=== PATIENT | female | born 1970 | race Caucasian/White ===

== ENCOUNTER → 2019-05-09 08:52 | Outpatient (REF) | payer OTHER, SELFPAY | LOC: ANHLAB 08:52 | PROVIDERS: PCP Internal Medicine; Visit Provider Nurse Practitioner Family | DX: L72.0 Epidermal cyst (principal) | CPT/HCPCS: 88304 ==

== ENCOUNTER 2024-08-30 08:37 | Outpatient (CLI) | payer OTHER, SELFPAY ==
--- NOTE | 2024-08-30 | ECHO_ITS ---
Patient Info Name: Kofi Louise Age: 54 years : 1970 Gender: Female Ht: 69 in Wt: 240 lbs BSA: 2.34 m2 HR: 66 bpm BP: 154 / 94 mmHg Technical Quality: Good, Fair Exam Date: 08/30/2024 8:59 AM Patient Status: O Admit Date: 08/30/2024 Exam Type: CA echo doppler color flow Complete two-dimensional, color flow and Doppler transthoracic echocardiogram is performed. Display Card Writer: Minerva Crocker Attending Provider: Jose L Meadows Summary 1. Complete two-dimensional, color flow and Doppler transthoracic echocardiogram is performed. 2. Left ventricular chamber dimension is normal. 3. Left ventricular systolic function is normal, estimated at 65-70. 4. The left ventricular diastolic function is normal. 5. E/e' 8 is minimally elevated. 6. There is trace mitral valve regurgitation. 7. There is mild tricuspid valve regurgitation. 8. No pulmonary hypertension, estimated pulmonary arterial systolic pressure is 26 mmHg. Left Ventricle E/e' 8 is minimally elevated. Left ventricular chamber dimension is normal. Left ventricular systolic function is normal, estimated at 65-70. The left ventricular diastolic function is normal. Right Ventricle Right ventricular chamber dimension is not well visualized. Right ventricular systolic function is normal based on a normal TAPSE 2.1 cm. Left Atria Left atrial chamber dimension is normal. Right Atria Right atrial chamber dimension is normal. Aortic Valve The aortic valve is trileaflet. There is no aortic valve stenosis. There is no aortic valve regurgitation. Pulmonic Valve There is no pulmonic regurgitation. Mitral Valve There is no mitral valve stenosis. There is trace mitral valve regurgitation. Tricuspid Valve There is mild tricuspid valve regurgitation. No pulmonary hypertension, estimated pulmonary arterial systolic pressure is 26 mmHg. Pericardium/Pleural There is no pericardial effusion. Inferior Vena Cava Normal inferior vena cava with >50% collapse upon inspiration consistent with normal right atrial pressure, 5 mmHg. Aorta The aortic root size at the sinus of Valsalva is normal. Left Ventricular Outflow Tract Name Value Normal LVOT 2D LVOT Diameter 1.8 cm LVOT Doppler LVOT Peak Velocity 90 cm/s LVOT Peak Gradient 3 mmHg LVOT Mean Gradient 2 mmHg LVOT VTI 22 cm LVOT VTI/AV VTI Ratio 0.7 LVOT Stroke Volume 58 ml LVOT CO 10.8 l/min LVOT CI 4.6 l/min/m2 Pulmonic Valve Name Value Normal PV Doppler PV Peak Velocity 90 cm/s PV Peak Gradient 3 mmHg Mitral Valve Name Value Normal MV Diastolic Function MV E Peak Velocity 93 cm/s MV A Peak Velocity 84 cm/s MV E/A 1.1 MV Decel Time (PW) 197 ms MV Annular TDI MV E/e' (Septal) 8.7 MV E/e' (Lateral) 8.9 MV E/e' (Average) 8.8 Tricuspid Valve Name Value Normal TV Regurgitation Doppler TR Peak Velocity 232 cm/s TR Peak Gradient 21 mmHg Estimated PAP/RSVP RA Pressure 5 mmHg <=5 PA Systolic Pressure 26 mmHg <36 RV Systolic Pressure 26 mmHg <36 TV Annular TDI TV Lateral Isha s' Velocity 12.2 cm/s >=9.5 Aorta Name Value Normal Ascending Aorta Ao Root Diameter (MM) 2.8 cm Ao Root Diam Index (MM) 1.2 cm/m2 Aortic Valve Name Value Normal AV Doppler AV Peak Velocity 121 cm/s AV Peak Gradient 6 mmHg AV Mean Gradient 3 mmHg AV VTI 31 cm AV Area (Cont Eq VTI) 1.9 cm2 >=3.0 AV Area (Cont Eq Remi) 2.0 cm2 AV DI (Remi) 0.75 AV Regurgitation 2D LVOT Area 2.6 cm2 Ventricles Name Value Normal LV Dimensions 2D/MM IVS Diastolic Thickness (2D) 0.9 cm 0.6-1.0 LVID Diastole (2D) 4.3 cm 3.8-5.2 LVIW Diastolic Thickness (2D) 0.9 cm 0.6-0.9 LVID Systole (2D) 2.5 cm 2.2-3.5 LVOT Diameter 1.8 cm LV Mass (2D Cubed) 126.17 g 67.00-162.00 LV Mass Index (2D Cubed) 54 g/m2 43-95 Relative Wall Thickness (2D) 0.40 <=0.42 LV Fractional Shortening/Ejection Fraction 2D/MM LV Fractional Shortening (2D) 42 % 27-45 LV EF (2D Teichholz) 74 % LV Diastolic Volume (4C MOD) 108 ml LV EF (4C MOD) 70 % LV Diastolic Volume (2C MOD) 108 ml LV EF (2C MOD) 68 % LV Diastolic Volume (BP MOD) 110 ml 46-106 LV Diastolic Volume Index (BP MOD) 47 ml/m2 29-61 LV Systolic Volume (BP MOD) 34 ml 14-42 LV Systolic Volume Index (BP MOD) 14 ml/m2 8-24 LV EF (BP MOD) 69 % 54-74 LV Diastolic Length (4C) 8.3 cm LV Systolic Length (4C) 6.5 cm LV Stroke Volume (4C MOD) 75 ml RV Dimensions 2D/MM RVID Diastole (2D) 3.7 cm 2.1-3.5 Atria Name Value Normal LA Dimensions LA Dimension (MM) 3.4 cm 2.7-3.8 LA Volume (4C A-L) 53 ml LA Volume (BP A-L) 53 ml RA Dimensions RA Systolic Major [place] Length (4C) 4.9 cm 2.2-2.8 RA Area (4C) 15.2 cm2 <=18.0 Report Signatures
--- OUTSIDE RECORDS SUMMARY | 2024-08-30 08:40 | XMS_ITS | CONTINUITY OF CARE DOCUMENT ---
Author Name felicitylane hilda Address Unknown Organization [facility] Address [address] [place] [address] Phone [phone] Care Team Providers Care Discharging Machine Operator Name Role Phone Jaya ALEXANDER, Benjamin Unavailable [phone] SADIE BUSTOS MD Unavailable [phone] SADIE BUSTOS MD Unavailable PROBLEMS Condition Status Date Provider Notes Palpitations active Ranjana Mohit Venous insufficiency active Taina major TV TECHNICIAN ENCOUNTERS Date Type Provider Location Encounter Diag nosis - In-person encounter Office Visit Benjamin Lake MD [facility] Office - In-person encounter Office Visit Benjamin Lake MD [facility] Office - In-person encounter Office Visit Benjamin Lake MD [facility] Venous insufficiency VITAL SIGNS Date Observation Value Provider Body Mass Index (Ratio) 36.32 kg/m2 Ronaldo Lake MD blood pressure, cuff size large Ke rri Gracie blood pressure, diastolic 96 mm[Hg] Ke rri Gracie blood pressure, systolic 132 mm[Hg] Tom Bowman oxygen saturation, oximetry 98 % Katerine Bowman respiratory rate E&M 14 /min Katerine galdamez pulse rate 86 /min Katerine carrillo weight E&M 246 [lb_av] Katerine carrillo height E&M 69 [in_i] Katerine kent Body Mass Index (Ratio) 36.47 kg/m2 Sund eemaren Lake MD blood pressure, diastolic 78 mm[Hg] An tiffanie Crocker blood pressure, systolic 142 mm[Hg] Any donell Crocker oxygen saturation, oximetry 99 % Caryn Crocker pulse rate 74 /min Caryn Crocker weight E&M 247 [lb_av] Caryn Crocker blood pressure, cuff size large An tiffanie Crocker height E&M 69 [in_i] Caryn Crocker Body Mass Index (Ratio) 35.88 kg/m2 Sund leonel Lake MD blood pressure, diastolic -1 mm[Hg] Heidi nkLog blood pressure, systolic 130 mm[Hg] Yi kLog blood pressure, diastolic 97 mm[Hg] Ke rri Gracie blood pressure, systolic 130 mm[Hg] Tom ri Gracie blood pressure, cuff size large Ke rri Gracie oxygen saturation, oximetry 100 % Katerine Bowman respiratory rate E&M 16 /min Katerine galdamez pulse rate 80 /min Katerine kent weight E&M 243 [lb_av] Katerine carrillo height E&M 69 [in_i] Katerine carrillo HISTORY OF MEDICATION USE No Known Medication SOCIAL HISTORY Date Observation Value Provider smoking status Never smoker Katerine washburn smoking status Never smoker Caryn Crocker smoking status Never smoker Katerine washburn INSURANCE PROVIDERS Payer name Policy type / Coverage type Cristiana red alliance party ID [facility] [id number] Other [id number] ADVANCE DIRECTIVES Name Date DISCUSSED - NO DECISION MADE TREATMENT PLAN Date Name Performer [id number],C, H ad then in the past - which she states is from anxiety h as not had them recently. Taina Roche TV TECHNICIAN [id number],C,H ad venous dopplers with significan Venous insufficiency of the GSV bilaterally, and the significant venous insufficiency of the R anterior accessory SV it measure mm with second of reflux. wearing her compression stockings thigh high will plan on doing the accessory vein on the right leg first since it is the largest and will determine if we can do the GSV at the same time. Taina Roche TV TECHNICIAN [id number],C,H ad then in the past - which she states is from anxiety Taina Donell Fayee TV TECHNICIAN [id number],C,S he has varicose veins noted in the right LE, with swelling and pain. Worse in the right than the left W e will obtain standing venous dopplers r ecommend conservative treatment with thigh high compression 20-30 mmHg to be worn daily and off at night e levate her legs when lying down /sitting. Taina Roche TV TECHNICIAN Cardiology: H ad then in the past - which she states is from anxiety h as not had them recently. Taina Roche TV TECHNICIAN Cardiology:Had venou s dopplers with significan Venous insufficiency of the GSV bilaterally, and the significant venous insufficiency of the R anterior accessory SV it measure mm with second of reflux. wearing her compression stockings thigh high will plan on doing the accessory vein on the right leg first since it is the largest and will determine if we can do the GSV at the same time. Taina Roche TV TECHNICIAN Cardiology:Had then in the past - which she states is from anxiety Taina Donell Fayee TV TECHNICIAN Cardiology:She has v aricose veins noted in the right LE, with swelling and pain. Worse in the right than the left W e will obtain standing venous dopplers r ecommend conservative treatment with thigh high compression 20-30 mmHg to be worn daily and off at night e levate her legs when lying down /sitting. Taina Roche TV TECHNICIAN Date Name Venous Doppler Unila teral RLE VenaSeal Venous Doppler Bilat eral LE - Reflux HISTORY OF PROCEDURES Procedure Date Procedure Name Provider Procedure Notes S tatus EKG Jaya ALEXANDER completed STEVE Villagomez Hooklisa Castro MD c ompleted
--- OUTSIDE RECORDS SUMMARY | 2024-08-30 08:40 | XMS_ITS | Clinical Summary ---
Author Organization [facility] Address [address] [place] [address] Care Team Providers Care Director Project Management Name Role Phone Unavailable Primary Care Provider Unavailabl e Source Comments [facility],non-owned Affiliates and Associated Physician Practices is amultiple site organization consisting of ambulatory clinics and hospital sitesin [place], [place], [place] and [place]. This disclosure is being madepursuant to the Care Everywhere program and may not contain all information available regarding this patient. Last updated 17.[facility] [place] Immunizations Immunization Administration Dates Next Due INFLUENZA VACCINE, QUADR. (F LUZONE; FLULAVAL; FLUARIX; AFLURIA QUADRIVALENT; 6MO+), 0.5 ML (IIV4) 01/31/2020 Social History Tobacco Use Types Packs/Day Years Used Date Smoking Tobacco: Never Assessed Comments Unknown Sex and Gender Information Value Date Recorded Sex Assigned at Not on file Legal Sex Female 3:39 PM [employer] Gender Identity Not on file Sexual Orientation Not on file Plan of Treatment Health Maintenance Due Date Last Done Comments COLOGUARD (AGES 45-75) - COL ON CA SCREENING 1970 COLON MONITORING 1970 COLONOSCOPY - COLON CA SCREENING 1972 CT COLONOGRAPHY - COLON CA SCREENING 1970 Colorectal Cancer Screening 1970 FIT - COLON CA SCREENING 1970 FLEX SIG - COLON CA SCREENING 1970 LIPID TESTING 1970 HIV SCREENING 06/28/1987 HEPATITIS C SCREENING 06/23/1990 DTAP/TDAP/TD VACCINES (1 - Tdap) 06/28/1991 HEPATITIS B VACCINE (1 of 3 - 19+ 3-dose series) 06/28/1991 MAMMOGRAM 12/09/2021 12/10/2019 PNEUMOCOCCAL VACCINE 50+ (1 of 1 - PCV) 2022 ZOSTER VACCINE (1 of 2) 2022 COVID-19 VACCINE (1 - 2023-2 5 season) 2023 DEPRESSION SCREENING 04/03/2024 INFLUENZA VACCINE (Season Ended) 2024 01/31/2020, 02/14/2019 HIB VACCINE Aged Out No longer eligi ble based on patient's age to complete this topic HPV VACCINE Aged Out No longer eligi ble based on patient's age to complete this topic MENINGOCOCCAL (Group B) VACCINE SHARED DECISION-MAKING Aged Out No longer eligible based on patient's age to complete this topic MENINGOCOCCAL GROUPS A/C/Y/W VACCINE Aged Out No longer eligible b ased on patient's age to complete this topic Insurance
--- OUTSIDE RECORDS SUMMARY | 2024-08-30 08:40 | XMS_ITS | Data Portability ---
[facility] [address] [place] [address] Care Team Providers Care Caddy Packer Name Role Phone SADIE MEADOWS Primary Care Provider [phone] Assessment Encounter Date Assessment Date Assessment LastModified by Organization Details LastModified Time 07/20/2023 07/20/2023 We will obtain blood work pros and cons of GLP-1 agents discussed and we will start Zepp bound we will see her 6 weeks after she starts the medicine. States she had a colonoscopy about a couple years ago sees INFRASTRUCTURE ANALYST regularly we will obtain old records see me back as [email or web address] Not available 07/20/2023 21:36:38 01/25/2024 01/25/2024 blood work. Regular walking. Healthy lifestyle care instructions. We will obtain records for Pap smear mammogram and colon cancer screening. Follow up 6 months. Not available 01/28/2024 21:07:49 07/25/2024 07/25/2024 Back caffeine echo healthy lifestyle care instructions blood reviewed Pneumovax 20 and which she will scheduled herself we have given her the coronary calcium score [email or web address] Not available 07/27/2024 14:02:23 Plan of Treatment Reminders Order Date Submit Date Provider Last Modified By Organization Details Last Modified Time Details Appointments None recorded. Lab lipid panel, serum 2023 SANJ[facility]NA [facility], [address], [place], [address], 08:24:21 CMP, serum or plasma 2023 SANJUANA [facility], [address], [place], [address], 4 08:24:22 CBC w/ auto diff 2023 024 [facility], [address], [place], [address], 4 08:24:24 lipid panel, serum 2023 024 [facility], [address], [place], [address], 4 08:25:16 CMP, serum or plasma 2023 024 [facility], [address], [place], [address], 4 08:25:17 TSH, ultra-sensi tive, serum 2023 024 SANJAUNA Rogers, [address], [place], [address], 4 08:25:18 T3, free, serum or plasma 2023 024 [facility], [address], [place], [address], 4 08:25:18 unlisted lab - T4, free 2023 024 SANJUANA Rogers, [address], [place], [address], 4 08:25:17 CBC w/ auto diff 2023 024 [facility]ED Sue, [address], [place], [address], 4 08:25:18 Referral None recorded. Procedures None recorded. Surgeries None recorded. Imaging electrocard iogram 2024 025 [email or web address] In-Office Order, Internal Use Only DO Not Attach Compendium DO Not Attach Compendium, Do Not Delete/merge, [id number] 5 21:34:17 US, echocardiog marcellus 2024 025 [facility] [address], [place], [address], 5 04:13:56 Medication Orders Zepbound 2.5 mg/0.5 mL subcutaneou s pen injector 2023 024 [id number], [address], [place], [place], [id number], 4 16:26:25 Zepbound 5 mg/0.5 mL subcutaneou s pen injector 2023 024 [facility] #[id number], [address], [place], [place], [id number], 4 16:26:28 Patient TargetsNo targets recorded. Patient Instructions Encounter Date Encounter Id Patient Instructions Last Modified By Organization Details Last Modified Time 01/25/2024 [id number] A healthy lifestyle: care instructions [email or web address] Not available 01/25/2024 17:30:37 07/25/2024 [id number] A healthy lifestyle: care instructions [email or web address] Not available 07/25/2024 21:34:17 Reason for Referral None Reported. Results Created Date Observation Date Name Description Value Unit Range Abnormal Flag Note LastModifiedBy Organization Detail LastModifiedTime 08/18/1908/19/2023 LIPID PANEL cholesterol, total 212 mg/dL 100-19 9 above high normal Not Available [facility] ([facility]) [address] [facility], [place], [address], 08/19/2023 08:25:16 08/18/19 24 08/19/2023 LIPID PANEL triglyceride s 61 mg/dL 0-149 Not Available [facility] ([facility]) [address] [place], [address], 08/19/2023 08:25:16 08/18/19 24 08/19/2023 LIPID PANEL HDL cholesterol 59 mg/dL >39 Not Available [facility] ([facility]) [address] [place], [address], 08/19/2023 08:25:16 08/18/19 24 08/19/2023 LIPID PANEL VLDL cholesterol dhaval 11 mg/dL 5-40 Not Available [facility] ([facility]) [address] [place], [address], 08/19/2023 08:25:16 08/18/19 24 08/19/2023 LIPID PANEL LDL chol calc ([facility]) 142 mg/dL 0-99 above high normal Not Available [facility] ([facility]) [address] [place], [address], 08/19/2023 08:25:16 08/18/19 24 08/19/2023 T4, FREE T4,free(dire ct) 1.24 NG/dL 0.82-1 .77 Not Available [facility] ([facility]) [address] [place], [address], 08/19/2023 08:25:16 08/18/19 24 08/19/2023 COMP. METAB OLIC PANEL (14) glucose 100 mg/dL 70-99 above high normal Not Available [facility] ([facility]) [address] [place], [address], 08/19/2023 08:25:17 08/18/19 24 08/19/2023 COMP. METAB OLIC PANEL (14) BUN 15 mg/dL 6-24 Not Available [facility] ([facility]) [address] [place], [address], 08/19/2023 08:25:17 08/18/19 24 08/19/2023 COMP. METAB OLIC PANEL (14) creatinine 1.04 mg/dL 0.57-1 .00 above high normal Not Available [facility] ([facility]) [address] [facility] [place], [address], 08/19/2023 08:25:17 08/18/19 24 08/19/2023 COMP. METAB OLIC PANEL (14) eGFR 65 mL/mi n/1.7 3 >59 Not Available [facility] ([facility]) [address] [facility] [place], [address], 08/19/2023 08:25:17 08/18/19 24 08/19/2023 COMP. METAB OLIC PANEL (14) BUN/creatini ne ratio 14 9-23 Not Available [facility] ([facility]) [address] [place], [address], 08/19/2023 08:25:17 08/18/19 24 08/19/2023 COMP. METAB OLIC PANEL (14) sodium 138 mmol/ L 134-14 4 Not Available [facility] ([facility]) [address] [place], [address], 08/19/2023 08:25:17 08/18/19 24 08/19/2023 COMP. METAB OLIC PANEL (14) potassium 4.5 mmol/ L 3.5-5. 2 Not Available [facility] ([facility]) [address] [place], [address], 08/19/2023 08:25:17 08/18/19 24 08/19/2023 COMP. METAB OLIC PANEL (14) chloride 102 mmol/ L 96-106 Not Available [facility] ([facility]) [address] [place], [address], 08/19/2023 08:25:17 08/18/19 24 08/19/2023 COMP. METAB OLIC PANEL (14) carbon dioxide, total 24 mmol/ L 20-29 Not Available [facility] ([facility]) [address] [place], [address], 08/19/2023 08:25:17 08/18/19 24 08/19/2023 COMP. METAB OLIC PANEL (14) calcium 9.5 mg/dL 8.7-10 .2 Not Available [facility] ([facility]) [address] [place], [address], 08/19/2023 08:25:17 08/18/19 24 08/19/2023 COMP. METAB OLIC PANEL (14) protein, total 6.8 g/dL 6.0-8. 5 Not Available [facility] ([facility] [address] [place], [address], 08/19/2023 08:25:17 08/18/19 24 08/19/2023 COMP. METAB OLIC PANEL (14) albumin 4.6 g/dL 3.8-4. 9 Not Available [facility] ([facility]) [address] [facility] [place], [address], 08/19/2023 08:25:17 08/18/19 24 08/19/2023 COMP. METAB OLIC PANEL (14) globulin, total 2.2 g/dL 1.5-4. 5 Not Available [facility] ([facility]) [address] [facility] [place], [address], 08/19/2023 08:25:17 08/18/19 24 08/19/2023 COMP. METAB OLIC PANEL (14) A/G ratio 2.1 1.2-2. 2 Not Available [facility] ([facility]) [address] [facility] [place], [address], 08/19/2023 08:25:17 08/18/19 24 08/19/2023 COMP. METAB OLIC PANEL (14) bilirubin, total 0.6 mg/dL 0.0-1. 2 Not Available [facility] ([facility]) [address] [facility] [place], [address], 08/19/2023 08:25:17 08/18/19 24 08/19/2023 COMP. METAB OLIC PANEL (14) alkaline phosphatase 42 IU/L 44-121 below low normal Not Available [facility] ([facility]) [address] [facility] [place], [address], 08/19/2023 08:25:17 08/18/19 24 08/19/2023 COMP. METAB OLIC PANEL (14) AST (SGOT) 23 IU/L 0-40 Not Available [facility] ([facility]) [address] [facility] [place], [address], 08/19/2023 08:25:17 08/18/19 24 08/19/2023 COMP. METAB OLIC PANEL (14) ALT (SGPT) 24 IU/L 0-32 Not Available [facility] ([facility]) [address] [facility], [place], [address], 08/19/2023 08:25:17 08/18/19 24 08/19/2023 TSH TSH 1.430 uIU/m L 0.450- 4.500 Not Available [facility] ([facility]) [address] [place], [address], 08/19/2023 08:25:17 08/18/19 24 08/19/2023 CBC WITH DIFFE RENTI AL/PL ATELE T WBC 6.2 x10e3 /uL 3.4-10 .8 Not Available [facility] ([facility]) [address] [facility] [place], [address], 08/19/2023 08:25:18 08/18/19 24 08/19/2023 CBC WITH DIFFE RENTI AL/PL ATELE T RBC 4.96 x10e6 /uL 3.77-5 .28 Not Available [facility] ([facility]) [address] [place], [address], 08/19/2023 08:25:18 08/18/19 24 08/19/2023 CBC WITH DIFFE RENTI AL/PL ATELE T hemoglobin 14.4 g/dL 11.1-1 5.9 Not Available [facility] ([facility]) [address] [facility], [place], [address], 08/19/2023 08:25:18 08/18/19 24 08/19/2023 CBC WITH DIFFE RENTI AL/PL ATELE T hematocrit 44.8 % 34.0-4 6.6 Not Available [facility] ([facility]) [address] [facility], [place], [address], 08/19/2023 08:25:18 08/18/19 24 08/19/2023 CBC WITH DIFFE RENTI AL/PL ATELE T MCV 90 fL 79-97 Not Available [facility] ([facility]) [address] [facility], [place], [address], 08/19/2023 08:25:18 08/18/19 24 08/19/2023 CBC WITH DIFFE RENTI AL/PL ATELE T MCH 29.0 pg 26.6-3 3.0 Not Available [facility] ([facility]) [address] [place], [address], 08/19/2023 08:25:18 08/18/19 24 08/19/2023 CBC WITH DIFFE RENTI AL/PL ATELE T MCHC 32.1 g/dL 31.5-3 5.7 Not Available [facility] ([facility]) [address] [place], [address], 08/19/2023 08:25:18 08/18/19 24 08/19/2023 CBC WITH DIFFE RENTI AL/PL ATELE T RDW 12.5 % 11.7-1 5.4 Not Available [facility] ([facility]) [address] [place], [address], 08/19/2023 08:25:18 08/18/19 24 08/19/2023 CBC WITH DIFFE RENTI AL/PL ATELE T platelets 343 x10e3 /uL 150-45 0 Not Available [facility] ([facility]) [address] [facility], [place], [address], 08/19/2023 08:25:18 08/18/19 24 08/19/2023 CBC WITH DIFFE RENTI AL/PL ATELE T neutrophils 67 % notest ab. Not Available [facility] ([facility]) [address] [facility], [place], [address], 08/19/2023 08:25:18 08/18/19 24 08/19/2023 CBC WITH DIFFE RENTI AL/PL ATELE T lymphs 25 % notest ab. Not Available [facility] ([facility]) [address] [facility], [place], [address], 08/19/2023 08:25:18 08/18/19 24 08/19/2023 CBC WITH DIFFE RENTI AL/PL ATELE T monocytes 5 % notest ab. Not Available [facility] ([facility]) [address] [facility], [place], [address], 08/19/2023 08:25:18 08/18/19 24 08/19/2023 CBC WITH DIFFE RENTI AL/PL ATELE T eos 2 % notest ab. Not Available [facility] ([facility]) [address] [facility], [place], [address], 08/19/2023 08:25:18 08/18/19 24 08/19/2023 CBC WITH DIFFE RENTI AL/PL ATELE T basos 1 % notest ab. Not Available [facility] ([facility]) [address] [facility], [place], [address], 08/19/2023 08:25:18 08/18/19 24 08/19/2023 CBC WITH DIFFE RENTI AL/PL ATELE T neutrophils (absolute) 4.2 x10e3 /uL 1.4-7. 0 Not Available [facility] ([facility]) [address] [facility], [place], [address], 08/19/2023 08:25:18 08/18/19 24 08/19/2023 CBC WITH DIFFE RENTI AL/PL ATELE T lymphs (absolute) 1.5 x10e3 /uL 0.7-3. 1 Not Available [facility] ([facility]) [address] [facility], [place], [address], 08/19/2023 08:25:18 08/18/19 24 08/19/2023 CBC WITH DIFFE RENTI AL/PL ATELE T monocytes(ab solute) 0.3 x10e3 /uL 0.1-0. 9 Not Available [facility] ([facility]) [address] [facility], [place], [address], 08/19/2023 08:25:18 08/18/19 24 08/19/2023 CBC WITH DIFFE RENTI AL/PL ATELE T eos (absolute) 0.1 x10e3 /uL 0.0-0. 4 Not Available [facility] ([facility]) [address] [facility], [place], [address], 08/19/2023 08:25:18 08/18/19 24 08/19/2023 CBC WITH DIFFE RENTI AL/PL ATELE T baso (absolute) 0.1 x10e3 /uL 0.0-0. 2 Not Available [facility] ([facility]) [address] [place], [address], 08/19/2023 08:25:18 08/18/19 24 08/19/2023 CBC WITH DIFFE RENTI AL/PL ATELE T immature granulocytes 0 % notest ab. Not Available [facility] ([facility]) [address] [place], [address], 08/19/2023 08:25:18 08/18/19 24 08/19/2023 CBC WITH DIFFE RENTI AL/PL ATELE T immature grans (abs) 0.0 x10e3 /uL 0.0-0. 1 Not Available [facility] ([facility]) [address] [place], [address], 08/19/2023 08:25:18 08/18/19 24 08/19/2023 TRIIO DOTHY JANETTE E (T3), FREE triiodothyro nine (T3), free 2.9 pg/mL 2.0-4. 4 Not Available [facility] ([facility]) [address] [place], [address], 08/19/2023 08:25:18 03/11/20 24 03/12/2024 LIPID PANEL cholesterol, total 201 mg/dL 100-19 9 above high normal Not Available [facility] ([facility]) [address] [place], [address], 03/12/2024 08:24:21 03/11/20 24 03/12/2024 LIPID PANEL triglyceride s 74 mg/dL 0-149 Not Available [facility] ([facility]) [address] [place], [address], 03/12/2024 08:24:21 03/11/20 24 03/12/2024 LIPID PANEL HDL cholesterol 42 mg/dL >39 Not Available [facility] ([facility]) [address] [place], [address], 03/12/2024 08:24:21 03/11/20 24 03/12/2024 LIPID PANEL VLDL cholesterol dhaval 13 mg/dL 5-40 Not Available [facility] ([facility]) [address] [place], [address], 03/12/2024 08:24:21 03/11/20 24 03/12/2024 LIPID PANEL LDL chol calc ([facility]) 146 mg/dL 0-99 above high normal Not Available [facility] ([facility]) [address] [place], [address], 03/12/2024 08:24:21 03/11/20 24 03/12/2024 COMP. METAB OLIC PANEL (14) glucose 91 mg/dL 70-99 Not Available [facility] ([facility]) [address] [place], [address], 03/12/2024 08:24:22 03/11/20 24 03/12/2024 COMP. METAB OLIC PANEL (14) BUN 13 mg/dL 6-24 Not Available [facility] ([facility]) [address] [facility] [place], [address], 03/12/2024 08:24:22 03/11/20 24 03/12/2024 COMP. METAB OLIC PANEL (14) creatinine 0.91 mg/dL 0.57-1 .00 Not Available [facility] ([facility]) [address] [facility] [place], [address], 03/12/2024 08:24:22 03/11/20 24 03/12/2024 COMP. METAB OLIC PANEL (14) eGFR 76 mL/mi n/1.7 3 >59 Not Available [facility] ([facility]) [address] [facility] [place], [address], 03/12/2024 08:24:22 03/11/20 24 03/12/2024 COMP. METAB OLIC PANEL (14) BUN/creatini ne ratio 14 9-23 Not Available [facility] ([facility]) [address] [facility] [place], [address], 03/12/2024 08:24:22 03/11/20 24 03/12/2024 COMP. METAB OLIC PANEL (14) sodium 137 mmol/ L 134-14 4 Not Available [facility] ([facility]) [address] [facility] [place], [address], 03/12/2024 08:24:22 03/11/20 24 03/12/2024 COMP. METAB OLIC PANEL (14) potassium 4.1 mmol/ L 3.5-5. 2 Not Available [facility] ([facility]) [address] [facility] [place], [address], 03/12/2024 08:24:22 03/11/20 24 03/12/2024 COMP. METAB OLIC PANEL (14) chloride 102 mmol/ L 96-106 Not Available [facility] ([facility]) [address] [facility], [place], [address], 03/12/2024 08:24:22 03/11/20 24 03/12/2024 COMP. METAB OLIC PANEL (14) carbon dioxide, total 22 mmol/ L 20-29 Not Available [facility] ([facility]) [address] [facility], [place], [address], 03/12/2024 08:24:22 03/11/20 24 03/12/2024 COMP. METAB OLIC PANEL (14) calcium 9.3 mg/dL 8.7-10 .2 Not Available [facility] ([facility]) [address] [place], [address], 03/12/2024 08:24:22 03/11/20 24 03/12/2024 COMP. METAB OLIC PANEL (14) protein, total 6.9 g/dL 6.0-8. 5 Not Available [facility] ([facility]) [address] [place], [address], 03/12/2024 08:24:22 03/11/20 24 03/12/2024 COMP. METAB OLIC PANEL (14) albumin 4.5 g/dL 3.8-4. 9 Not Available [facility] ([facility]) [address] [facility] [place] [place], [address], 03/12/2024 08:24:22 03/11/20 24 03/12/2024 COMP. METAB OLIC PANEL (14) globulin, total 2.4 g/dL 1.5-4. 5 Not Available [facility] ([facility]) [address] [facility] [place], [address], 03/12/2024 08:24:22 03/11/20 24 03/12/2024 COMP. METAB OLIC PANEL (14) bilirubin, total 0.4 mg/dL 0.0-1. 2 Not Available [facility] ([facility]) [address] [facility] [place] [place], [address], 03/12/2024 08:24:22 03/11/20 24 03/12/2024 COMP. METAB OLIC PANEL (14) alkaline phosphatase 43 IU/L 44-121 below low normal Not Available [facility] ([facility]) [address] [facility] [place] [place], [address], 03/12/2024 08:24:22 03/11/20 24 03/12/2024 COMP. METAB OLIC PANEL (14) AST (SGOT) 14 IU/L 0-40 Not Available [facility] ([facility]) [address] [facility] [place] [place], [address], 03/12/2024 08:24:22 03/11/20 24 03/12/2024 COMP. METAB OLIC PANEL (14) ALT (SGPT) 20 IU/L 0-32 Not Available [facility] ([facility]) [address] [place], [address], 03/12/2024 08:24:22 03/11/20 24 03/12/2024 CBC WITH DIFFE RENTI AL/PL ATELE T WBC 5.4 x10e3 /uL 3.4-10 .8 Not Available [facility] ([facility]) [address] [facility] [place], [address], 03/12/2024 08:24:23 03/11/20 24 03/12/2024 CBC WITH DIFFE RENTI AL/PL ATELE T RBC 4.90 x10e6 /uL 3.77-5 .28 Not Available [facility] ([facility]) [address] [facility], [place], [address], 03/12/2024 08:24:23 03/11/20 24 03/12/2024 CBC WITH DIFFE RENTI AL/PL ATELE T hemoglobin 14.8 g/dL 11.1-1 5.9 Not Available [facility] ([facility]) [address] [facility], [place], [address], 03/12/2024 08:24:23 03/11/20 24 03/12/2024 CBC WITH DIFFE RENTI AL/PL ATELE T hematocrit 44.2 % 34.0-4 6.6 Not Available [facility] ([facility]) [address] [facility], [place], [address], 03/12/2024 08:24:23 03/11/20 24 03/12/2024 CBC WITH DIFFE RENTI AL/PL ATELE T MCV 90 fL 79-97 Not Available [facility] ([facility]) [address] [place], [address], 03/12/2024 08:24:23 03/11/20 24 03/12/2024 CBC WITH DIFFE RENTI AL/PL ATELE T MCH 30.2 pg 26.6-3 3.0 Not Available [facility] ([facility]) [address] [place], [address], 03/12/2024 08:24:23 03/11/20 24 03/12/2024 CBC WITH DIFFE RENTI AL/PL ATELE T MCHC 33.5 g/dL 31.5-3 5.7 Not Available [facility] ([facility]) [address] [place], [address], 03/12/2024 08:24:23 03/11/20 24 03/12/2024 CBC WITH DIFFE RENTI AL/PL ATELE T RDW 12.5 % 11.7-1 5.4 Not Available [facility] ([facility]) [address] [facility], [place], [address], 03/12/2024 08:24:23 03/11/20 24 03/12/2024 CBC WITH DIFFE RENTI AL/PL ATELE T platelets 282 x10e3 /uL 150-45 0 Not Available [facility] ([facility]) [address] [facility], [place], [address], 03/12/2024 08:24:23 03/11/20 24 03/12/2024 CBC WITH DIFFE RENTI AL/PL ATELE T neutrophils 65 % notest ab. Not Available [facility] ([facility]) [address] [facility], [place], [address], 03/12/2024 08:24:23 03/11/20 24 03/12/2024 CBC WITH DIFFE RENTI AL/PL ATELE T lymphs 26 % notest ab. Not Available [facility] ([facility]) [address] [facility], [place], [address], 03/12/2024 08:24:23 03/11/20 24 03/12/2024 CBC WITH DIFFE RENTI AL/PL ATELE T monocytes 6 % notest ab. Not Available [facility] ([facility]) [address] [facility], [place], [address], 03/12/2024 08:24:23 03/11/20 24 03/12/2024 CBC WITH DIFFE RENTI AL/PL ATELE T eos 2 % notest ab. Not Available [facility] ([facility]) [address] [place], [address], 03/12/2024 08:24:23 03/11/20 24 03/12/2024 CBC WITH DIFFE RENTI AL/PL ATELE T basos 1 % notest ab. Not Available [facility] ([facility]) [address] [place], [address], 03/12/2024 08:24:23 03/11/20 24 03/12/2024 CBC WITH DIFFE RENTI AL/PL ATELE T neutrophils (absolute) 3.5 x10e3 /uL 1.4-7. 0 Not Available [facility] ([facility]) [address] [facility], [place], [address], 03/12/2024 08:24:23 03/11/20 24 03/12/2024 CBC WITH DIFFE RENTI AL/PL ATELE T lymphs (absolute) 1.4 x10e3 /uL 0.7-3. 1 Not Available [facility] ([facility]) [address] [place], [address], 03/12/2024 08:24:23 03/11/20 24 03/12/2024 CBC WITH DIFFE RENTI AL/PL ATELE T monocytes(ab solute) 0.3 x10e3 /uL 0.1-0. 9 Not Available [facility] ([facility]) [address] [place], [address], 03/12/2024 08:24:23 03/11/20 24 03/12/2024 CBC WITH DIFFE RENTI AL/PL ATELE T eos (absolute) 0.1 x10e3 /uL 0.0-0. 4 Not Available [facility] ([facility]) [address] [facility], [place], [address], 03/12/2024 08:24:23 03/11/20 24 03/12/2024 CBC WITH DIFFE RENTI AL/PL ATELE T baso (absolute) 0.0 x10e3 /uL 0.0-0. 2 Not Available [facility] ([facility]) [address] [place], [address], 03/12/2024 08:24:23 03/11/20 24 03/12/2024 CBC WITH DIFFE RENTI AL/PL ATELE T immature granulocytes 0 % notest ab. Not Available [facility] ([facility]) [address], [place], [address], 03/12/2024 08:24:23 03/11/20 24 03/12/2024 CBC WITH DIFFE RENTI AL/PL ATELE T immature grans (abs) 0.0 x10e3 /uL 0.0-0. 1 Not Available [facility] ([facility]) [address], [place], [address], 03/12/2024 08:24:23 02/14/20 24 12/02/2022 MAMMO , scree harriet, digit al, bilat eral No observ ation record ed. [facility] [address], [place], [address], 02/14/2024 13:12:24 07/26/19 25 elect rocar diogr am No observ ation record ed. SANJUANA In-Office Order Internal Use Only DO Not Attach Compendium DO Not Attach Compendium, Do Not Delete/merge, [id number] 07/25/2024 17:39:17 07/26/19 25 07/25/2024 elect rocar diogr am No observ ation record ed. SANJUANA In-Office Order Internal Use Only DO Not Attach Compendium DO Not Attach Compendium, Do Not Delete/merge, [id number] 07/25/2024 17:45:51 Result Notes None recorded. Problems Name Problem SNOMED Code Status Onset Date Resolution Date Notes Provider Name and Address Organization Details Recorded Time Fatigue 78794011 Active 2023 LEO Scott, [place] - [facility] 4 17:20:32 Obesity 181338196 Active 2023 Flor Andrew MA null, [place] - [facility] 4 17:20:33 Hyperlipidemia 50826051 Active 2023 LEO [place], [place] - [facility] 17:30:51 Problem Notes None recorded. Medical Equipment None Reported. Allergies No known drug allergies Medications Name Sig Start Date Stop Date Status Note LastModified by Organization Details LastModified Time Zepbound 5 mg/0.5 mL subcutaneou s pen injector inject 5mg weekly for 4wks then go to 7.5mg weekly for 4wks 01/24 completed Not Available Not Available Not Available Zepbound 2.5 mg/0.5 mL subcutaneou s pen injector Inject by subcutane ous route for 28 days. 2023 active Not Available Not Available Not Avai lable Vitals Date Recorded Body height Body mass index (BMI) Body weight Heart rate Oxygen saturation Oxygen saturation in Arterial blood by Pulse oximetry Systolic blood pressure Diastolic blood pressure Provider Name and Address Organization Details Last Updated DateTime 4 175.26 cm 37.7 kg/m2 030270. 05 g 80 /min 98 % 98 % 116 mm[Hg] 82 mm[Hg] Anatoly Corona [facility] 4 16:31:42 Date Recorded Body height Body mass index (BMI) Body weight Heart rate Oxygen saturation Oxygen saturation in Arterial blood by Pulse oximetry Systolic blood pressure Diastolic blood pressure Provider Name and Address Organization Details Last Updated DateTime 5 175.26 cm 37.6 kg/m2 828603. 26 g 78 /min 98 % 98 % 124 mm[Hg] 74 mm[Hg] Isa Manzo MA [facility] 5 17:03:17 Date Recorded Body height Body mass index (BMI) Body weight Heart rate Oxygen saturation Oxygen saturation in Arterial blood by Pulse oximetry Systolic blood pressure Diastolic blood pressure Provider Name and Address Organization Details Last Updated DateTime 4 175.26 cm 37.1 kg/m2 743369. 4 g 75 /min 99 % 99 % 110 mm[Hg] 76 mm[Hg] Isa Manzo MA [facility] 4 16:25:37 Social History Question Answer Notes LastModified by Organizat ion Details LastModified Time Tobacco Smoking Status Never Smoker Anatoly Corona MA null, [facility] 07/20/2023 16:26:58 Do You Have An Advance Directive? [email or web address] Information n ot available 07/20/2023 Are You Blind Or Do You Have Difficulty Seeing? No Information n ot available 07/20/2023 What Is Your Level Of Caffeine Consumption? Occasional Information not available 07/20/2023 In The 14 Days Before Symptom Onset, Have You Had Close Contact With A Laboratory-confirm ed COVID-19 While That Case Was Ill? No Information n ot available 01/25/2024 In The 14 Days Before Symptom Onset, Have You Had Close Contact With A Person Who Is Under Investigation For COVID-19 While That Person Was Ill? No Information not available 01/25/2024 Have You Been To An Area Known To Be High Risk For COVID-19? No Information not available 01/25/2024 Are You Deaf Or Do You Have Serious Difficulty Hearing? No Information not available 07/20/2023 What Type Of Diet Are You Following? REGULAR Information n ot available 07/20/2023 What Was The Date Of Your Most Recent Tobacco Screening? 07/25/2024 Information not available 07/25/2024 What Is Your Relationship Status? Information not available 07/20/2023 Do You Use Your Seat Belt Or Car Seat Routinely? Yes Information not available 07/20/2023 Do You Have Smoke And Carbon Monoxide Detectors In Your Home? Yes Information not available 07/20/2023 Do You Use Sunscreen Routinely? Yes Information not available 07/20/2023 Has Tobacco Cessation Counseling Been Provided? No Information not available 07/20/2023 Sex: Female Functional Status Question Answer Note LastModified by Organizat ion Details LastModified Time Do you use any illicit or recreational drugs? No Information not available 07/20/2023 Do you or have you ever used any other forms of tobacco or nicotine? No Information not available 07/20/2023 What is your level of alcohol consumption? Occasional Information not available 07/20/2023 Are you currently employed? Yes Information not available 07/20/2023 Are you able to care for yourself? 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 Occasional Information not available 07/20/2023 Mental Status Question Answer Note LastModified by Organization D etails LastModified Time Do you feel stressed (tense, restless, nervous, or anxious, or unable to sleep at night)? [id number] Information not available 07/20/2023 Family History Nothing Reported. Medical History Condition Response Coronary Artery Disease N Other N Atrial Fibrillation N High Blood Pressure N Thyroid Problems N Kidney or Bladder Problems N GI Problems N Depression N COPD N Blood Clots N Skin Problems N Anemia N Heart Attack (IA) N Diabetes N Anxiety Disorder N Muscle, Joint, or Bone Problems N Seizures/Epilepsy N Acid Reflux (GERD) N Cancer N Stroke N Asthma N Allergies N High Cholesterol N Hepatitis N Liver Disease N Headaches N Osteoporosis N Heart Failure N Gynecological HistoryNo gynecological history recorded. Obstetrics History GPAL:G 0 P 0 0 0 0 Immunizations Vaccine Type Date Status Note Provider Nam e and Address Organization Details Recorded Time COVID-19, mRNA, LNP-S, PF, 100 mcg/0.5mL dose or 50 mcg/0.25mL dose 1 completed Isa Manzo [place] null, [place] - [facility] 07/25/2024 10:28:21 COVID-19, mRNA, LNP-S, PF, 100 mcg/0.5mL dose or 50 mcg/0.25mL dose 1 completed Isa Manzo [place], [place] [facility] 07/25/2024 10:28:21 COVID-19, mRNA, LNP-S, PF, 100 mcg/0.5mL dose or 50 mcg/0.25mL dose 1 completed Isa Manzo [place] [facility] 07/25/2024 10:28:21 Influenza, split virus, trivalent, preservative 1 completed Isa Manzo [place] [facility] 07/25/2024 10:28:21 Influenza, split virus, quadrivalent, PF 0 completed LEO [place], [place] [facility] 07/25/2024 10:28:21 Influenza, split virus, quadrivalent, PF 2 completed LEO [place] [facility] 07/25/2024 10:28:21 Influenza, split virus, quadrivalent, PF 1 completed Isa Man[place] [facility] 07/25/2024 10:28:21 Influenza, split virus, quadrivalent, PF 9 completed Isa Man[place] [facility] 07/25/2024 10:28:21 Influenza, split virus, quadrivalent, PF 3 completed Isa Man[place] [facility] 07/25/2024 10:28:21 pneumococcal polysaccharide PPV23 5 completed Pura Rodriguez [place], [place] [facility] 07/25/2024 17:21:38 Past Encounters Encounter ID Performer Location Encounter Start Date Encounter Closed Date Diagnosis/Indication Diagnosis SNOMED-CT Code Diagnosis ICD10 Code Diagnosis Note [id number] Sadie Meadows MD [facility] - [place] [address] [place] [address] 07/20/2023 15:54:17 07/20/2023 17:27:11 Fatigue 98997241 R53.83 Obesity 264722601 E66.9 Screening for cardiovascular system disease 090636068 Z13.6 [id number] Sadie Meadows MD [facility] - [place] [address] [place] [address] 01/25/2024 15:52:40 01/25/2024 17:32:28 Body mass index 30+ - obesity 836669503 Z68.37 Obesity 535559698 E66.9 Hyperlipidemia 60724602 E78.5 [id number] Sadie Meadows MD [facility] - [place] [address] [place] [address] 07/25/2024 16:01:52 07/25/2024 17:57:39 Body mass index 30+ - obesity 271230245 Z68.37 Obese class I 8769152614 97930 E66.811 Pneumococc al vaccination given 201060419 Z23 Chest pain 76734298 R07. 89 Electrocar diogram abnormal 789204576 R94.31 Hyperlipidemia 56238362 E78.5 Health Concerns Section Related Observation LastModified by Organization Detai ls LastModified Time None Recorded Concern Status LastModified by Organization Details LastModified Time None Recorded Advance Directives Directive Y: Payers Encounter Date Sequence Insurance Name Policy Number Policy Eric Covered Member ID Eric Member ID Guarantor Name 07/20/2023 1 [facility] [id number] Kofi Louise [id number] Kofi Louise 01/25/2024 1 [facility] [id number] Kofi Louise [id number] Kofi Louise 07/25/2024 1 [facility] [id number] Kofi Louise [id number] Kofi Louise Notes Date Note Type Note Provider Name and Address Organization Details Recorded Time 07/20/2023 text/html 53-year-old some nonspecific fatigue for couple of months obesity despite the fact that she is try to lose weight through variety of diets in the past Sadie Meadows MD Attn: [address] [place], [address], [facility] [place] 07/20/2023 21:36:51 01/25/2024 text/html hyperlipidemia d oes try to follow diet. Obesity needs some health losing some weight. Palpitations resolved Sadie Meadows MD Attn: [address] [place], [address], [facility] [place] 01/28/2024 21:08:06 07/25/2024 text/html Mild hyperlipide dai she has also had occasional still struggles weight Sadie Meadows MD Attn: [address] [place], [address], [facility] 07/27/2024 14:02:43 OBGyn Episode No OBEpisode recorded.
--- OUTSIDE RECORDS SUMMARY | 2024-08-30 08:41 | XMS_ITS | Data Portability ---
Author Organization MD - [facility] Reviews42, Main Office Address [address] [place] [address] Assessment Encounter Date Assessment Date Assessment LastModified by Organization Details LastModified Time 08/11/2022 08/11/2022 Weight reduction Not available 08/13/2022 15:22:39 Plan of Treatment Reminders Order Date Submit Date Provider Last Modified By Organization Details Last Modified Time Details Appointments None recorded . Lab lipid panel, serum 023 08/12/19 [facility] (Lab), [address] [place], [address], 3 19:26:02 CBC w/ auto diff 023 08/12/[address] [facility] (Lab), [address] [place], [address], 3 19:07:23 CMP, serum or plasma 023 08/12/19 [facility] (Lab), [address] [place], [address], 3 19:26:08 Referral None recorded . Procedures None recorded . Surgeries None recorded . Imaging None recorded . Medication Orders None recorded . Patient TargetsNo targets recorded. Patient InstructionsNo instructions recorded. Reason for Referral None Reported. Results Created Date Observation Date Name Description Value Unit Range Abnormal Flag Note LastModifiedBy Organization Detail LastModifiedTime 10/16/19 22 10/15/2021 TSH thyroid-stim ulating hormone 1.540 uIU/m L 0.465- 4.680 Not Available [facility] (Lab) [address] [place], [address], 10/15/2021 13:31:10 10/16/19 22 10/15/2021 T4 FREE free T4 1.15 NG/dL 0.78-2 .19 Not Available [facility] (Lab) [address] [place], [address], 10/15/2021 13:22:36 10/16/19 22 10/15/2021 T3 FREE free T3 3.1 pg/mL 2.77-5 .27 Not Available [facility] (Lab) [address] [place], [address], 10/15/2021 13:22:34 10/16/19 22 10/15/2021 LIPID PANEL cholesterol 218 mg/dL 140-19 9 high NIH VALERIE NSUS RECOM MENDA TION FOR ESTRELLITA STERO L: ADULT CHILD LOW RISK: <200 <170 BORDE RLINE : <200- 239 ----- HIGH RISK: >240 >200 Not Available [facility] (Lab) [address] [place], [address], 10/15/2021 13:08:07 10/16/19 22 10/15/2021 LIPID PANEL triglyceride s 47 mg/dL 0-150 NIH VALERIE NSUS REPOR T RECOM MENDA TION FOR TRIGL YCERI MCKINLEY: ADULT CHILD LOW RISK: <150 ----- BODER LINE: 150-1 99 ----- HIGH RISK: >200 ----- Not Available [facility] (Lab) [address] [place], [address], 10/15/2021 13:08:07 10/16/19 22 10/15/2021 LIPID PANEL HDL cholesterol 69 mg/dL 40- Not Available [facility] (Lab) [address] [place], [address], 10/15/2021 13:08:07 10/16/19 22 10/15/2021 LIPID PANEL LDL cholesterol, calculated 140 mg/dL 0-130 high NIH VALERIE NSUS REPOR T RECOM MENDA TIONS FOR LDL: ADULT CHILD LOW RISK <130 <110 (OPTI MAL LDL) <100 ----- BORDE RLINE : 130-1 59 ----- HIGH RISK: >160 >130 A TRIGL YCERI DE RESUL T >400 INVAL IDATE S THE CALCU LATIO N FOR LDL FRACT IONAT ION - THE LDL RESUL T WILL NOT BE REPOR AZIZA. Not Available [facility] (Lab) [address] [place], [address], 10/15/2021 13:08:07 10/16/19 22 10/15/2021 COMPR EHENS JAN METAB OLIC PANEL sodium 139 mmol/ L 137-14 5 Not Available [facility] (Lab) [address] [place], [address], 10/15/2021 13:07:56 10/16/19 22 10/15/2021 COMPR EHENS JAN METAB OLIC PANEL potassium 4.3 mmol/ L 3.5-5. 1 Not Available [facility] (Lab) [address] [place], [address], 10/15/2021 13:07:56 10/16/19 22 10/15/2021 COMPR EHENS JAN METAB OLIC PANEL chloride 107 mmol/ L 98-107 Not Available [facility] (Lab) [address] [place], [address], 10/15/2021 13:07:56 10/16/19 22 10/15/2021 COMPR EHENS JAN METAB OLIC PANEL carbon dioxide 27 mmol/ L 22-30 Not Available [facility] (Lab) [address] [place], [address], 10/15/2021 13:07:56 10/16/19 22 10/15/2021 COMPR EHENS JAN METAB OLIC PANEL anion gap 9.3 mmol/ L 14-22 low Not Available [facility] (Lab) [address] [place], [address], 10/15/2021 13:07:56 10/16/19 22 10/15/2021 COMPR EHENS JAN METAB OLIC PANEL glucose 97 mg/dL 70-99 Not Available [facility] (Lab) [address] [place], [address], 10/15/2021 13:07:56 10/16/19 22 10/15/2021 COMPR EHENS JAN METAB OLIC PANEL BUN 17 mg/dL 8-19 Not Available [facility] (Lab) [address] [place], [address], 10/15/2021 13:07:56 10/16/19 22 10/15/2021 COMPR EHENS JAN METAB OLIC PANEL creatinine 1.00 mg/dL 0.66-1 .25 Not Available [facility] (Lab) [address] [place], [address], 10/15/2021 13:07:56 10/16/19 22 10/15/2021 COMPR EHENS JAN METAB OLIC PANEL GFR 59 Refer ence Range : [place] ge GFR Healt hy Adult : >60 mL/mi n/1.7 3 m2 Chron ic Kidne y Disea se: 15-60 mL/mi n/1.7 3 m2 Kidne y Failu re: <15/m L/min /1.73 m2 www.n iddk. nih.g ov The MDRD study equat ion has not been valid ated in child nelson <18 years of age; pregn ant women ; the elder ly >85 years of age; or in some racia l or ethni c subgr oups, such as Hispa nics. Outsi de the valid ated ade eters , estim ated GFR is less accur ate, requi ring clini dhaval judgm ent on a case- by-ca se basis . Clini dhaval inter preta tion for other races and ages must be made by the clini ashanti. The MDRD study equat ion has not been valid ated for the evalu ation of serum creat inine relat ed to nutri howard l statu s or medic ation usage . For perso ns <18 years of age, a pedia tric GFR calcu lator is avail able on the [facility] websi te: https :[email or web address] [email or web address] chinyere/pr ofess ional s/kdo qi/gf r_cal culat or Not Available [facility] (Lab) [address] [place], [address], 10/15/2021 13:07:56 10/16/19 22 10/15/2021 COMPR EHENS JAN METAB OLIC PANEL alkaline phosphatase 39 U/L 38-126 Not Available [facility] (Lab) [address] [place], [address], 10/15/2021 13:07:56 10/16/19 22 10/15/2021 COMPR EHENS JAN METAB OLIC PANEL alanine aminotransfe rase 23 U/L 0-35 Not Available [facility] (Lab) [address] [place], [address], 10/15/2021 13:07:56 10/16/19 22 10/15/2021 COMPR EHENS JAN METAB OLIC PANEL aspartate aminotransfe rase 24 U/L 15-37 Not Available [facility] (Lab) [address] [place], [address], 10/15/2021 13:07:56 10/16/19 22 10/15/2021 COMPR EHENS JAN METAB OLIC PANEL bilirubin, total 0.70 mg/dL 0.20-1 .30 Not Available [facility] (Lab) [address] [place], [address], 10/15/2021 13:07:56 10/16/19 22 10/15/2021 COMPR EHENS JAN METAB OLIC PANEL calcium 9.1 mg/dL 8.4-10 .2 Not Available [facility] (Lab) [address] [place], [address], 10/15/2021 13:07:56 10/16/19 22 10/15/2021 COMPR EHENS JAN METAB OLIC PANEL total protein 7.4 g/dL 6.3-8. 2 Not Available [facility] (Lab) [address] [place], [address], 10/15/2021 13:07:56 10/16/19 22 10/15/2021 COMPR EHENS JAN METAB OLIC PANEL albumin 4.6 g/dL 3.4-5. 0 Not Available [facility] (Lab) [address] [place], [address], 10/15/2021 13:07:56 10/16/19 22 10/15/2021 COMPR EHENS JAN METAB OLIC PANEL globulin 2.8 g/dL 2.6-4. 2 Not Available [facility] (Lab) [address] [place], [address], 10/15/2021 13:07:56 10/16/19 22 10/15/2021 COMPR EHENS JAN METAB OLIC PANEL A/G ratio 1.6 ratio 1.0-2. 0 Not Available [facility] (Lab) [address] [place], [address], 10/15/2021 13:07:56 10/16/19 22 10/15/2021 CBC/C OMPLE TE BLD COUNT W/DIF F white blood cells 6.1 x10'3 /uL 4.2-10 .8 Not Available [facility] (Lab) [address] [place], [address], 10/15/2021 12:50:17 10/16/19 22 10/15/2021 CBC/C OMPLE TE BLD COUNT W/DIF F red blood cells 4.78 x10'6 /uL 3.80-5 .20 Not Available [facility] (Lab) [address] [place], [address], 10/15/2021 12:50:17 10/16/19 22 10/15/2021 CBC/C OMPLE TE BLD COUNT W/DIF F hemoglobin 14.4 g/dL 12.0-1 5.6 Not Available [facility] (Lab) [address] [place], [address], 10/15/2021 12:50:17 10/16/19 22 10/15/2021 CBC/C OMPLE TE BLD COUNT W/DIF F hematocrit 44.0 % 35.7-4 5.7 Not Available [facility] (Lab) [address] [place], [address], 10/15/2021 12:50:17 10/16/19 22 10/15/2021 CBC/C OMPLE TE BLD COUNT W/DIF F mean red cell volume 92.1 fL 82.0-9 9.0 Not Available [facility] (Lab) [address] [place], [address], 10/15/2021 12:50:17 10/16/19 22 10/15/2021 CBC/C OMPLE TE BLD COUNT W/DIF F mean red cell hemoglobin 30.1 pg 27.0-3 3.0 Not Available [facility] (Lab) [address] [place], [address], 10/15/2021 12:50:17 10/16/19 22 10/15/2021 CBC/C OMPLE TE BLD COUNT W/DIF F mean RBC HGB concentratio n 32.7 g/dL 31.0-3 6.0 Not Available [facility] (Lab) [address] [place], [address], 10/15/2021 12:50:17 10/16/19 22 10/15/2021 CBC/C OMPLE TE BLD COUNT W/DIF F red cell distribution width 12.4 % 11.8-1 5.5 Not Available [facility] (Lab) [address] [place], [address], 10/15/2021 12:50:17 10/16/19 22 10/15/2021 CBC/C OMPLE TE BLD COUNT W/DIF F platelets 334 x10'3 /uL 150-40 0 Not Available [facility] (Lab) [address] [place], [address], 10/15/2021 12:50:17 10/16/19 22 10/15/2021 CBC/C OMPLE TE BLD COUNT W/DIF F mean platelet volume 10.4 fL 9.0-12 .4 Not Available [facility] (Lab) [address] [place], [address], 10/15/2021 12:50:17 10/16/19 22 10/15/2021 CBC/C OMPLE TE BLD COUNT W/DIF F neutrophils 60.9 % 39.0-7 2.0 Not Available [facility] (Lab) [address] [place], [address], 10/15/2021 12:50:17 10/16/19 22 10/15/2021 CBC/C OMPLE TE BLD COUNT W/DIF F lymphocytes 29.8 % 16.0-4 7.0 Not Available [facility] (Lab) [address] [place], [address], 10/15/2021 12:50:17 10/16/19 22 10/15/2021 CBC/C OMPLE TE BLD COUNT W/DIF F monocytes 5.2 % 5.0-12 .0 Not Available [facility] (Lab) [address] [place], [address], 10/15/2021 12:50:17 10/16/19 22 10/15/2021 CBC/C OMPLE TE BLD COUNT W/DIF F eosinophils 3.1 % 1.0-7. 0 Not Available [facility] (Lab) [address] [place], [address], 10/15/2021 12:50:17 10/16/19 22 10/15/2021 CBC/C OMPLE TE BLD COUNT W/DIF F basophils 0.8 % 0.0-2. 0 Not Available [facility] (Lab) [address] [facility] [place], [address], 10/15/2021 12:50:17 10/16/19 22 10/15/2021 CBC/C OMPLE TE BLD COUNT W/DIF F immature granulocytes 0.2 % 0.00-0 .50 Not Available [facility] (Lab) [address] [place], [address], 10/15/2021 12:50:17 10/16/19 22 10/15/2021 CBC/C OMPLE TE BLD COUNT W/DIF F neutrophils, absolute count 3.72 x10'3 /uL 1.5-8. 0 Not Available [facility] (Lab) [address] [place], [address], 10/15/2021 12:50:17 10/16/19 22 10/15/2021 CBC/C OMPLE TE BLD COUNT W/DIF F lymphocytes, absolute count 1.82 x10'3 /uL 1.07-3 .43 Not Available [facility] (Lab) [address] [place], [address], 10/15/2021 12:50:17 10/16/19 22 10/15/2021 CBC/C OMPLE TE BLD COUNT W/DIF F monocytes, absolute count 0.32 x10'3 /uL 0.29-0 .99 Not Available [facility] (Lab) [address] [place], [address], 10/15/2021 12:50:17 10/16/19 22 10/15/2021 CBC/C OMPLE TE BLD COUNT W/DIF F eosinophils, absolute count 0.19 x10'3 /uL 0.02-0 .53 Not Available [facility] (Lab) [address] [place], [address], 10/15/2021 12:50:17 10/16/19 22 10/15/2021 CBC/C OMPLE TE BLD COUNT W/DIF F basophils, absolute count 0.05 x10'3 /uL 0.01-0 .08 Not Available [facility] (Lab) [address] [place], [address], 10/15/2021 12:50:17 10/16/19 22 10/15/2021 CBC/C OMPLE TE BLD COUNT W/DIF F immature granulocytes ,absolute 0.01 x10'3 /uL 0.00-0 .05 Not Available [facility] (Lab) [address] [place], [address], 10/15/2021 12:50:17 10/16/19 22 10/15/2021 CBC/C OMPLE TE BLD COUNT W/DIF F nucleated red blood cells 0.0 % -0 Not Available [facility] (Lab) [address] [place], [address], 10/15/2021 12:50:17 10/16/19 22 10/15/2021 CBC/C OMPLE TE BLD COUNT W/DIF F NRBC# 0.00 x10'3 /uL Not Available [facility] (Lab) [address] [place], [address], 10/15/2021 12:50:17 12/21/19 23 12/20/2022 CBC/C OMPLE TE BLD COUNT W/DIF F white blood cells 5.8 x10'3 /uL 4.2-10 .8 Not Available [facility] (Lab) [address] [place], [address], 12/20/2022 19:07:23 12/21/19 23 12/20/2022 CBC/C OMPLE TE BLD COUNT W/DIF F red blood cells 4.73 x10'6 /uL 3.80-5 .20 Not Available [facility] (Lab) [address] [place], [address], 12/20/2022 19:07:23 12/21/19 23 12/20/2022 CBC/C OMPLE TE BLD COUNT W/DIF F hemoglobin 13.8 g/dL 12.0-1 5.6 Not Available [facility] (Lab) [address] [place], [address], 12/20/2022 19:07:23 12/21/1912/20/2022 CBC/C OMPLE TE BLD COUNT W/DIF F hematocrit 42.6 % 35.7-4 5.7 Not Available [facility] (Lab) [address] [place], [address], 12/20/2022 19:07:23 12/21/19 23 12/20/2022 CBC/C OMPLE TE BLD COUNT W/DIF F mean red cell volume 90.1 fL 82.0-9 9.0 Not Available [facility] (Lab) [address] [place], [address], 12/20/2022 19:07:23 12/21/19 23 12/20/2022 CBC/C OMPLE TE BLD COUNT W/DIF F mean red cell hemoglobin 29.2 pg 27.0-3 3.0 Not Available [facility] (Lab) [address] [place], [address], 12/20/2022 19:07:23 12/21/19 23 12/20/2022 CBC/C OMPLE TE BLD COUNT W/DIF F mean RBC HGB concentratio n 32.4 g/dL 31.0-3 6.0 Not Available [facility] (Lab) [address] [place], [address], 12/20/2022 19:07:23 12/21/19 23 12/20/2022 CBC/C OMPLE TE BLD COUNT W/DIF F red cell distribution width 12.5 % 11.8-1 5.5 Not Available [facility] (Lab) [address] [place], [address], 12/20/2022 19:07:23 12/21/19 23 12/20/2022 CBC/C OMPLE TE BLD COUNT W/DIF F platelets 320 x10'3 /uL 150-40 0 Not Available [facility] (Lab) [address] [place], [address], 12/20/2022 19:07:23 12/21/19 23 12/20/2022 CBC/C OMPLE TE BLD COUNT W/DIF F mean platelet volume 10.5 fL 9.0-12 .4 Not Available [facility] (Lab) [address] [place], [address], 12/20/2022 19:07:23 12/21/19 23 12/20/2022 CBC/C OMPLE TE BLD COUNT W/DIF F neutrophils 62.3 % 39.0-7 2.0 Not Available [facility] (Lab) [address] [place], [address], 12/20/2022 19:07:23 12/21/1912/20/2022 CBC/C OMPLE TE BLD COUNT W/DIF F lymphocytes 29.4 % 16.0-4 7.0 Not Available [facility] (Lab) [address] [place], [address], 12/20/2022 19:07:23 12/21/1912/20/2022 CBC/C OMPLE TE BLD COUNT W/DIF F monocytes 5.0 % 5.0-12 .0 Not Available [facility] (Lab) [address] [place], [address], 12/20/2022 19:07:23 12/21/19 23 12/20/2022 CBC/C OMPLE TE BLD COUNT W/DIF F eosinophils 2.2 % 1.0-7. 0 Not Available [facility] (Lab) [address] [place], [address], 12/20/2022 19:07:23 12/21/19 23 12/20/2022 CBC/C OMPLE TE BLD COUNT W/DIF F basophils 0.9 % 0.0-2. 0 Not Available [facility] (Lab) [address] [place], [address], 12/20/2022 19:07:23 12/21/19 23 12/20/2022 CBC/C OMPLE TE BLD COUNT W/DIF F immature granulocytes 0.2 % 0.00-0 .50 Not Available [facility] (Lab) [address] [place], [address], 12/20/2022 19:07:23 12/21/19 23 12/20/2022 CBC/C OMPLE TE BLD COUNT W/DIF F neutrophils, absolute count 3.61 x10'3 /uL 1.5-8. 0 Not Available [facility] (Lab) [address] [place], [address], 12/20/2022 19:07:23 12/21/1912/20/2022 CBC/C OMPLE TE BLD COUNT W/DIF F lymphocytes, absolute count 1.70 x10'3 /uL 1.07-3 .43 Not Available [facility] (Lab) [address] [place], [address], 12/20/2022 19:07:23 12/21/19 23 12/20/2022 CBC/C OMPLE TE BLD COUNT W/DIF F monocytes, absolute count 0.29 x10'3 /uL 0.29-0 .99 Not Available [facility] (Lab) [address] [place], [address], 12/20/2022 19:07:23 12/21/19 23 12/20/2022 CBC/C OMPLE TE BLD COUNT W/DIF F eosinophils, absolute count 0.13 x10'3 /uL 0.02-0 .53 Not Available [facility] (Lab) [address] [place], [address], 12/20/2022 19:07:23 12/21/19 23 12/20/2022 CBC/C OMPLE TE BLD COUNT W/DIF F basophils, absolute count 0.05 x10'3 /uL 0.01-0 .08 Not Available [facility] (Lab) [address] [place], [address], 12/20/2022 19:07:23 12/21/19 23 12/20/2022 CBC/C OMPLE TE BLD COUNT W/DIF F immature granulocytes ,absolute 0.01 x10'3 /uL 0.00-0 .05 Not Available [facility] (Lab) [address] [place], [address], 12/20/2022 19:07:23 12/21/19 23 12/20/2022 CBC/C OMPLE TE BLD COUNT W/DIF F nucleated red blood cells 0.0 % -0 Not Available [facility] (Lab) [address] [place], [address], 12/20/2022 19:07:23 12/21/19 23 12/20/2022 CBC/C OMPLE TE BLD COUNT W/DIF F NRBC# 0.00 x10'3 /uL Not Available [facility] (Lab) [address] [place], [address], 12/20/2022 19:07:23 12/21/19 23 12/20/2022 LIPID PANEL cholesterol 211 mg/dL 140-19 9 high NIH VALERIE NSUS RECOM MENDA TION FOR ESTRELLITA STERO L: ADULT CHILD LOW RISK: <200 <170 BORDE RLINE : <200- 239 ----- HIGH RISK: >240 >200 Not Available [facility] (Lab) [address] [place], [address], 12/20/2022 19:26:02 12/21/19 23 12/20/2022 LIPID PANEL triglyceride s 60 mg/dL 0-150 NIH VALERIE NSUS REPOR T RECOM MENDA TION FOR TRIGL YCERI MCKINLEY: ADULT CHILD LOW RISK: <150 ----- BODER LINE: 150-1 99 ----- HIGH RISK: >200 ----- Not Available [facility] (Lab) [address] [place], [address], 12/20/2022 19:26:02 12/21/19 23 12/20/2022 LIPID PANEL HDL cholesterol 62 mg/dL 40- Not Available [facility] (Lab) [address] [place], [address], 12/20/2022 19:26:02 12/21/19 23 12/20/2022 LIPID PANEL LDL cholesterol, calculated 137 mg/dL 0-130 high NIH VALERIE NSUS REPOR T RECOM MENDA TIONS FOR LDL: ADULT CHILD LOW RISK <130 <110 (OPTI MAL LDL) <100 ----- BORDE RLINE : 130-1 59 ----- HIGH RISK: >160 >130 A TRIGL YCERI DE RESUL T >400 INVAL IDATE S THE CALCU LATIO N FOR LDL FRACT IONAT ION - THE LDL RESUL T WILL NOT BE REPOR AZIZA. Not Available [facility] (Lab) [address] [place], [address], 12/20/2022 19:26:02 12/21/19 23 12/20/2022 COMPR EHENS JAN METAB OLIC PANEL sodium 137 mmol/ L 137-14 5 Not Available [facility] (Lab) [address] [place], [address], 12/20/2022 19:26:07 12/21/19 23 12/20/2022 COMPR EHENS JAN METAB OLIC PANEL potassium 4.4 mmol/ L 3.5-5. 1 Not Available [facility] (Lab) [address] [place], [address], 12/20/2022 19:26:07 12/21/19 23 12/20/2022 COMPR EHENS JAN METAB OLIC PANEL chloride 102 mmol/ L 98-107 Not Available [facility] (Lab) [address] [place], [address], 12/20/2022 19:26:07 12/21/19 23 12/20/2022 COMPR EHENS JNA METAB OLIC PANEL carbon dioxide 28 mmol/ L 22-30 Not Available [facility] (Lab) [address] [place], [address], 12/20/2022 19:26:07 12/21/19 23 12/20/2022 COMPR EHENS JAN METAB OLIC PANEL anion gap 11.4 mmol/ L 14-22 low Not Available [facility] (Lab) [address] [place], [address], 12/20/2022 19:26:07 12/21/19 23 12/20/2022 COMPR EHENS JAN METAB OLIC PANEL glucose 89 mg/dL 70-99 Not Available [facility] (Lab) [address] [place], [address], 12/20/2022 19:26:07 12/21/19 23 12/20/2022 COMPR EHENS JAN METAB OLIC PANEL BUN 15 mg/dL 8-19 Not Available [facility] (Lab) [address] [place], [address], 12/20/2022 19:26:07 12/21/19 23 12/20/2022 COMPR EHENS JAN METAB OLIC PANEL creatinine 0.85 mg/dL 0.66-1 .25 Not Available [facility] (Lab) [address] [place], [address], 12/20/2022 19:26:07 12/21/1912/20/2022 COMPR EHENS JAN METAB OLIC PANEL GFR >60 Refer ence Range : [place] ge GFR Healt hy Adult : >60 mL/mi n/1.7 3 m2 Chron ic Kidne y Disea se: 15-60 mL/mi n/1.7 3 m2 Kidne y Failu re: <15/m L/min /1.73 m2 www.n iddk. nih.g ov The MDRD study equat ion has not been valid ated in child nelson <18 years of age; pregn ant women ; the elder ly >85 years of age; or in some racia l or ethni c subgr oups, such as Hispa nics. Outsi de the valid ated ade eters , estim ated GFR is less accur ate, requi ring clini dhaval judgm ent on a case- by-ca se basis . Clini dhaval inter preta tion for other races and ages must be made by the clini ashanti. The MDRD study equat ion has not been valid ated for the evalu ation of serum creat inine relat ed to nutri hoawrd l statu s or medic ation usage . For perso ns <18 years of age, a pedia tric GFR calcu lator is avail able on the [facility] websi te: https :[email or web address] [email or web address] rg/pr ofess ional s/kdo qi/gf r_cal culat or Not Available [facility] (Lab) [address] [place], [address], 12/20/2022 19:26:07 12/21/1912/20/2022 COMPR EHENS JAN METAB OLIC PANEL alkaline phosphatase 39 U/L 38-126 Not Available [facility] (Lab) [address] [place], [address], 12/20/2022 19:26:07 12/21/19 23 12/20/2022 COMPR EHENS JAN METAB OLIC PANEL alanine aminotransfe rase 25 U/L 0-35 Not Available [facility] (Lab) [address] [place], [address], 12/20/2022 19:26:07 12/21/19 23 12/20/2022 COMPR EHENS JAN METAB OLIC PANEL aspartate aminotransfe rase 22 U/L 15-37 Not Available [facility] (Lab) [address] [place], [address], 12/20/2022 19:26:07 12/21/19 23 12/20/2022 COMPR EHENS JAN METAB OLIC PANEL bilirubin, total 0.70 mg/dL 0.20-1 .30 Not Available [facility] (Lab) [address] [place], [address], 12/20/2022 19:26:07 12/21/19 23 12/20/2022 COMPR EHENS JAN METAB OLIC PANEL calcium 8.8 mg/dL 8.4-10 .2 Not Available [facility] (Lab) [address] [place], [address], 12/20/2022 19:26:07 12/21/19 23 12/20/2022 COMPR EHENS JAN METAB OLIC PANEL total protein 6.9 g/dL 6.3-8. 2 Not Available [facility] (Lab) [address] [place], [address], 12/20/2022 19:26:07 12/21/19 23 12/20/2022 COMPR EHENS JAN METAB OLIC PANEL albumin 4.3 g/dL 3.4-5. 0 Not Available [facility] (Lab) [address] [place], [address], 12/20/2022 19:26:07 12/21/19 23 12/20/2022 COMPR EHENS JAN METAB OLIC PANEL globulin 2.6 g/dL 2.6-4. 2 Not Available [facility] (Lab) [address] [place], [address], 12/20/2022 19:26:07 12/21/19 23 12/20/2022 COMPR EHENS JAN METAB OLIC PANEL A/G ratio 1.7 ratio 1.0-2. 0 Not Available [facility] (Lab) [address] [place], [address], 12/20/2022 19:26:07 11/19/19 22 04/23/2014 colon oscop y scree harriet (PROC ) No observ ation record ed. [id number] Not Available 06/01/2022 07:38:22 06/11/19 23 06/09/2022 US, vasquez vasquez s, lower extre mity No observ ation record ed. [facility] [address], [place], [address], 08/18/2022 14:02:10 07/05/19 23 04/06/2022 US, vasquez vasquez s, extre mity, compl ete No observ ation record ed. [facility] [address], [place], [address], 08/18/2022 14:02:37 Result Notes None recorded. Problems Name Problem SNOMED Code Status Onset Date Resolution Date Notes Provider Name and Address Organization Details Recorded Time Plantar fasciitis of right foot 3209274904728 9101 Active 2018 Not Available [facility] 3 08:43:19 Venous varices 518260578 Active 2021 Not Available [facility] 3 08:43:19 Steatotic liver disease 490529652 Active Not Available [facility] 3 08:43:19 Abdominal pain 73655383 Active Not Available [facility] 3 08:43:19 Cyst of skin 984028642 Active Not Available [facility] 3 08:43:19 Epidermoid cyst of skin 091779452 Active Not Available formerly [facility] 3 08:43:19 Foot pain 94833973 Active Not Available formerly [facility] 3 08:43:19 Guadalupe samano 58896750 Active Not Available formerly [facility] 3 08:43:19 Fatigue 22923995 Active 2021 Not Available formerly [facility] 3 08:43:19 Pain in limb 01940228 Active Not Available formerly [facility] 3 08:43:19 Problem Notes None recorded. Procedures Surgical History Date Name Laterality Status Provider Name and Address Organization Details Recorded Time 07/01/2022 Ablation completed Ivone Rolon RN [place] - [place] [facility] 08/11/2022 15:20:28 other completed Not Available formerly [facility] 04/2022 07:27:26 Imaging Results None recorded. Procedure Notes None recorded. Medical Equipment None Reported. Allergies No known drug allergies Medications Name Sig Start Date Stop Date Status Note LastModified by Organization Details LastModified Time fluconazo le 100 mg tablet TK 1 T PO QD FOR 10 DAYS 05/08 completed Not Available Not Available Not Available nystatin 100,000 unit/mL oral suspensio n SWISH AND SWALLOW 5 ML TID. 05/08 completed Not Available Not Available Not Available azithromy ivana 250 mg tablet FPD 08/03 completed Not Available Not Available Not Available fluconazo le 150 mg tablet TK 1 T PO ONCE REPEAT IN 3 DAYS IF SYMPTOMS PERSIST 11/19 completed Not Available Not Available Not Available peg-elect rolyte solution 420 gram oral solution 12/23 completed Not Available Not Available Not Available nystatin oral suspensio n swish and swallow 5 cc three times a day 05/08 completed Not Available Not Available Not Available cephalexi n 500 mg capsule Take 1 capsule 3 times a day by oral route for 10 days. 11/08 completed Not Available Not Available Not Available neomycin- polymyxin -dexameth 3.5 mg/mL-10, 000 unit/mL-0 .1% eye drops 02/14 completed Not Available Not Available Not Available Cipro 500 mg tablet Take 1 tablet every 12 hours by oral route for 7 days. 12/23 completed Not Available Not Available Not Available nystatin- triamcino lone 100,000 unit/g-0. 1 % topical cream MATTHEW TID FOR 14 DAYS 11/19 completed Not Available Not Available Not Available sertralin e 50 mg tablet Take 1 tablet every day by oral route. 02/02 completed pt stopped on her own Not Available Not Available Not Available hydroxyzi ne pamoate 25 mg capsule TAKE 1 CAPSULE BY MOUTH EVERY DAY AT BEDTIME 08/11 completed Not Available Not Available Not Available neomycin 3.5 mg/g-poly myxin B 10,000 unit/g-de xameth 0.1 % eye oint active Not Available Not Available Not Available nystatin swish and swallow 5 cc three times a day 11/08 completed Not Available Not Available Not Available Blisovi Fe 04/22 (28) 1 mg-20 mcg (21)/75 mg (7) tablet 08/12 completed Not Available Not Available Not Available Vitals Date Recorded Body height Body weight Body temperature Heart rate Oxygen saturation Oxygen saturation in Arterial blood by Pulse oximetry Systolic blood pressure Diastolic blood pressure Provider Name and Address Organization Details Last Updated DateTime 3 175.26 cm 165092. 54 g 98 [degF] 88 /min 98 % 98 % 124 mm[Hg] 86 mm[Hg] Ivone Rolon RN [place] 99 [employer] 3 15:22:22 Date Recorded Body mass index (BMI) Body height Heart rate Body temperature Body weight Systolic blood pressure Diastolic blood pressure Provider Name and Address Organization Details Last Updated DateTime 2 34 kg/m2 175.26 cm 84 /min 96.4 [degF] 125174. 25 g 120 mm[Hg] 60 mm[Hg] Not Available [facility] 3 07:30:24 Date Recorded Body mass index (BMI) Body height Heart rate Body temperature Body weight Systolic blood pressure Diastolic blood pressure Provider Name and Address Organization Details Last Updated DateTime 2 35.1 kg/m2 175.26 cm 80 /min 98.2 [degF] 724251. 98 g 114 mm[Hg] 72 mm[Hg] Not Available [facility] 3 07:30:24 Social History Question Answer Notes LastModified by Organizat ion Details LastModified Time Tobacco Smoking Status Never Smoker Not Available [facility] 06/01/2022 07:27:14 Do You Have An Advance Directive? No [id number] Information not available 06/01/2022 What Is Your Level Of Caffeine Consumption? Occasional [id number] Information not available 06/01/2022 In The 14 Days Before Symptom Onset, Have You Had Close Contact With A Laboratory-confi rmed COVID-19 While That Case Was Ill? No MIGRATION.[id number] Information not available 06/01/2022 In The 14 Days Before Symptom Onset, Have You Had Close Contact With A Person Who Is Under Investigation For COVID-19 While That Person Was Ill? No MIGRATION.[id number] Information not available 06/01/2022 What Type Of Diet Are You Following? REGULAR MIGRATION.[id number] Information not available 06/01/2022 What Is The Highest Grade Or Level Of School You Have Completed Or The Highest Degree You Have Received? [id number] MIGRATION.09693 08261 Information not available 06/01/2022 Have There Been Any Changes To Your Family Or Social Situation? No MIGRATION.32191 52431 Information not available 06/01/2022 What Is The Fluoride Status Of Your Home? Unknown MIGRATION.34608 [id number] Information not available 06/01/2022 Are There Any Guns Present In Your Home? No MIGRATION.07119 80532 Information not available 06/01/2022 Do You Use Insect Repellent Routinely? No MIGRATION.51933 24011 Information not available 06/01/2022 Where Do You Live? [place] MIGRATION.30014 01113 Information not available 06/01/2022 Do You Have A Medical Power Of [employer] Operator Helper? No MIGRATION.24520 58520 Information not available 06/01/2022 What Was The Date Of Your Most Recent Tobacco Screening? 08/11/2022 [email or web address] Information not available 08/11/2022 Have You Ever Been Counseled For Unhealthy Alcohol Use? No MIGRATION.10637 42088 Information not available 06/01/2022 Do You Have Any Pets? No MIGRATION.31547 51898 Information not available 06/01/2022 What Is Your Relationship Status? MIGRATION.94883 40793 Information not available 06/01/2022 Do You Use Your Seat Belt Or Car Seat Routinely? Yes MIGRATION.37320 94144 Information not available 06/01/2022 Do You Have Smoke And Carbon Monoxide Detectors In Your Home? Yes MIGRATION.20750 44705 Information not available 06/01/2022 Are You Passively Exposed To Smoke? No MIGRATION.44218 11530 Information not available 06/01/2022 Are There Any Smokers In Your House? No MIGRATION.44199 68826 Information not available 06/01/2022 Do You Use Sunscreen Routinely? No MIGRATION.75622 64124 Information not available 06/01/2022 Has Tobacco Cessation Counseling Been Provided? No Not Needed-ne radha Smoked MIGRATION.09215 38248 Information not available 06/01/2022 Have You Recently Traveled Abroad? No MIGRATION.23173 63711 Information not available 06/01/2022 Do You Have Any Dietary Restrictions? No MIGRATION.31775 41094 Information not available 06/01/2022 Sex: Female Functional Status Question Answer Note LastModified by [employer] Details LastModified Time Do you use any illicit or recreational drugs? No MIGRATION.139108 8426 Information not available 06/01/2022 Do you or have you ever used any other forms of tobacco or nicotine? No MIGRATION.631159 2700 Information not available 06/01/2022 What is your level of alcohol consumption? Occasional MIGRATION.012352 2503 Information not available 06/01/2022 Are you currently employed? 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 Occasional MIGRATION.522475 3755 Information not available 06/01/2022 Mental Status Question Answer Note LastModified by [employer] Details LastModified Time Do you feel stressed (tense, restless, nervous, or anxious, or unable to sleep at night)? [id number] MIGRATION.[id number] Information not available 06/01/2022 Family History Relationship Description Onset Age of this Age Resolved Age Notes LastModified by Organization Details LastModified Time Mother General health good [id number] Not available 06/01/2022 07:27:29 Medical History Condition Response BLINDNESS N NERVE DISEASE N RHEUMATIC FEVER N BLADDER PROBLEMS N KIDNEY STONES N MRSA N OTHER # 1 N POLIO N LUNG DISEASE/DISORDER N HISTORY OF DRUG ABUSE N RADIATION / CHEMOTHERAPY N COPD N Other # 2 N BLOOD DISEASES N EAR OR HEARING PROBLEMS N MUMPS N SHINGLES N DEPRESSION (INCLUDING POST ) N BOWEL PROBLEMS N STROKE/TIA N ULCERS N BENIGN PROSTATIC HYPERPLASIA N MEASLES N HYPOTENSION N MYOCARDIAL INFARCTION N OBESITY N GERD/NAUSEA N ANEURYSM N URINARY/BLADDER/KIDNEY PROBLEMS N CORONARY ARTERY DISEASE (CAD) N ADDICTION CONCERNS N ENDOMETRIOSIS N Impotence N USE OF BLOOD THINNERS N SKIN PROBLEMS N GASTROINTESTINAL DISORDER N PERIPHERAL VASCULAR DISEASE N MUSCLE,JOINT OR BONE PROBLEMS N GASTROINTESTINAL BLEEDING N BLOOD CLOTS N ASTHMA N CATARACTS N ERECTILE DYSFUNCTION N VARICOSITIES N GI PROBLEMS N Low Testosterone N INFERTILITY N AIDS/HIV N CHEMOTHERAPY / RADIATION N LIVER DISEASE N MALE HYPOGONADISM N HYPERTENSION N Deficiency N TOURETTE'S N ANXIETY DISORDER N BLOOD TRANSFUSION N ANEMIA/BLOOD DISORDER N CHRONIC EAR INFECTIONS N BRONCHITIS N TUBERCULOSIS N GLAUCOMA N FOOT PROBLEM N DIVERTICULITIS N CHICKENPOX N SLEEP APNEA N INFECTIOUS DISEASE N HEART ARRHYTHMIA N PROSTATE N INSOMNIA N HIGH CHOLESTEROL / HYPERLIPIDEMIA N HYPERTHYROIDISM N EYE PROBLEMS N EDEMA N CHRONIC PAIN SYNDROME N HYPOTHYROIDISM N CAROTID BLOCKAGE N CONSTIPATION N BACK / NECK PROBLEMS N HAVE YOU BEEN HOSPITALIZED OR SEEN IN [facility] IN THE PAST YEAR ? N ATHEROSCLEROSIS N BREAST PROBLEMS N DIALYSIS N ECZEMA N OSTEOPOROSIS N ARTHRITIS N NO SIGNIFICANT PAST MEDICAL HISTORY N APPENDICITIS N DIABETES, TYPE N BAD TEETH N ENT N HEARTBURN / REFLUX N AUTISM SPECTRUM DISORDER (ASD) N HEPATITIS / LIVER DISEASE Y GOUT N SLEEP DISORDER N ALZHEIMER'S DISEASE N Brain Problems N HERPES N DEMENTIA N HEADACHES/MIGRAINES N SEIZURES/EPILEPSY N VASCULAR DISEASE N PACEMAKER N Blood Disorder N DIZZINESS N HEART DISEASE/HEART PROBLEMS N KIDNEY DISEASE N MULTIPLE SCLEROSIS N CARDIAC ARRHYTHMIA N CANCER: SPECIFY N ATRIAL FIBRILLATION N Gall Stones N PULMONARY EMBOLISM N AUTOIMMUNE DISEASE N Gynecological HistoryNo gynecological history recorded. Obstetrics History GPAL:G 0 P 0 0 0 0 Immunizations Vaccine Type Date Status Note Provider Nam e and Address Organization Details Recorded Time Influenza, split virus, trivalent, preservative 1 completed Not Available formerly [facility] 12/21/2022 08:43:20 Influenza, split virus, quadrivalent, PF 2 completed Not Available formerly [facility] 12/21/2022 08:43:20 Influenza, split virus, quadrivalent, PF 9 completed Not Available formerly [facility] 12/21/2022 08:43:20 Past Encounters Encounter ID Performer Location Encounter Start Date Encounter Closed Date Diagnosis/Indication Diagnosis SNOMED-CT Code Diagnosis ICD10 Code Diagnosis Note [id number] Jose L Meadows MD [facility] Internal [facility] [place] [address] [facility] dali Bustos, [place] [address] 08/12/2021 00:00:00 09/13/2021 22:36:55 [id number] Jose L Meadows MD [facility] [place] [address] [place] [address] dali Bustos, [place] [address] 02/10/2022 00:00:00 02/10/2022 21:45:59 [id number] Jose L Meadows MD [facility] Internal [facility] [place] [address] [facility] , [place] [address] 08/11/2022 15:12:05 08/11/2022 16:28:44 Adult health examination 761346700 Z00.00 Steatotic liver disease 775293696 K76.0 Venous varices 001173443 I83.93 Health Concerns Section Related Observation LastModified by Organization Detai ls LastModified Time None Recorded Concern Status LastModified by Organization Details LastModified Time None Recorded Advance Directives Directive N: Payers Encounter Date Sequence Insurance Name Policy Number Policy Eric Covered Member ID Eric Member ID Guarantor Name 08/11/2022 1 [facility] [id number] Kofi Louise [id number] Kofi Louise Notes Date Note Type Note Provider Name and Address Organization Details Recorded Time 08/11/2022 text/html Doing fine had her ablation Jose L Meadows MD [address] [place] [address], [place], [address], [facility] [employer] 08/13/2022 15:22:55 OBGyn Episode No OBEpisode recorded.
== END 2024-08-30 08:38 | disposition home or self-care (01) ==
PROVIDERS: PCP Internal Medicine; Visit Provider Internal Medicine
DX: R94.31 Abnormal electrocardiogram [ECG] [EKG] (principal); I07.1 Rheumatic tricuspid insufficiency
CPT/HCPCS: 93306